=== PATIENT | female | born 1985 | race Two or more races ===

== ENCOUNTER 2023-12-08 11:02 | Emergency (ER) | payer OTHER, SELFPAY ==
--- NOTE | 2023-12-08 11:49 | ED.GENADULT ---
HPI - General Adult General Chief complaint: Dental/Oral Stated complaint: sore throat- r ear pain Time Seen by Provider: 12/08/23 12:05 Source: patient Mode of arrival: ambulatory Limitations: no limitations History of Present Illness ED Provider: Guzman NEGRO HPI narrative: 38yo F presents with sore throat and right ear pain since Wednesday. Hx of recurrent strep pharyngitis. No sick contacts at home. Feels as though she is worsening. Subjective fevers reported. Denies CP, SOB, drooling, voice changes, headache, weakness, N/V, cough, Related Data Previous Rx's ?Medication ?Instructions ?Recorded amoxicillin 875 mg-potassium 1 tab PO BID 7 days #14 tabs 12/08/23 clavulanate 125 mg tablet ciprofloxacin 0.3 %-dexamethasone 4 drp otic (ears) BID 7 days #7.5 12/08/23 0.1 % ear drops,suspension mL (Ciprodex) Allergies Allergy/AdvReac Type Severity Reaction Status Date / Time No Known Allergies Allergy Verified 12/08/23 11:52 Review of Systems Review of Systems: Yes all other systems are reviewed and are negative [facility] Past Medical History Attestation statement: The following information was validated with the patient. Source: old records reviewed and nursing notes reviewed Social History Social History Do you have a plan to hurt others: No Plan Physical Exam ED Vital Signs: Vital Signs - 24 hr 12/08/23 11:50 Temperature 97.5 F Pulse Rate 89 Respiratory Rate 18 Blood Pressure 162/86 H Pulse Oximetry 100 Oxygen Delivery Method Room Air BMI result Body Mass Index 38.4 vss Appearance: Alert.? Oriented X3.? No acute cardiopulmonary distress distress.? Head: Normocephalic, atraumatic, no step-offs or deformities ENT: Pharynx w/ b/l tonsilar hypertrophy and edema no exudate. Uvula midline. Normal external ears b/l, w/ painful manipulation of right ear. TM and EC errythematous and bulging on right. Normal L EC and TM. No mastoid tenderness. Neck: Normal inspection.? Neck supple.? CVS: Pulses normal.?RRR Respiratory: No respiratory distress.?CTA Skin: ? Normal skin color. Neuro: Oriented X 3. Course Course Course Narrative: This is an RME done by [facility] Toth: Additional HPI, ROS, PE not included below will be deferred to primary provider. 38yo F presents with sore throat and right ear pain since Wednesday. Subjective fevers. Denies CP, SOB. Appearance: Alert.? Oriented X3.? No acute cardiopulmonary distress distress.? Head: Normocephalic, atraumatic, no step-offs or deformities ENT: Pharynx w/ b/l tonsilar hypertrophy and edema no exudate. Uvula midline. Normal external ears b/l, w/ painful manipulation of right ear. TM and EC errythematous and bulging on right. Normal L EC and TM. No mastoid tenderness. Neck: Normal inspection.? Neck supple.? CVS: Pulses normal.?RRR Respiratory: No respiratory distress.?CTA Skin: ? Normal skin color. Neuro: Oriented X 3. Reevaluation(s) Reevaluation #1: + strep, patient also has otitis need a an otitis externa. Will give her Augmentin as well as Ciprodex. Educated patient on diagnosis and treatment plan, answered all question, patient verbalizes understanding. At this time patient will be discharged home, advised to return with new or worsening symptoms. Educated on worrisome signs and symptoms and when to return. At this time I feel comfortable discharge home. Time: 13:00 Medical Decision Making Medical Decision Making [facility] Narrative: 38yo F presenting with sore throat and right ear pain since Wednesday. PE: Right EC and TM erythematous and edematous with painful manipulation of the external ear. No mastoid tenderness b/l. Left ear normal. Pharynx erythematous with tonsillar hypertrophy b/l, no exudate. Uvula midline. Hx and PE concerning for strep pharyngitis and AOM, less likely paratonsillar abscess, epiglotitis, mastoiditis, threat to airway, acute respiratory distress, ruptured TM. Plan: serology Differential Diagnosis Differential Diagnoses: The differential diagnosis associated with the presentation includes Hx and PE concerning for strep pharyngitis and AOM, less likely paratonsillar abscess, epiglotitis, mastoiditis, threat to airway, acute respiratory distress, ruptured TM. Admission/Observation Consideration of admission/observation: Escalation of care including admission/observation considered (Unlikely) Lab Data [facility] Lab Attestation statement: I reviewed the patient's lab results. Labs: Lab Results 12/08/23 Range/Units 12:45 S. pyogenes GrpA RITA Positive A (Negative) Critical Care Time Critical Care Time Critical Care Time: No Discharge Plan Discharge Clinical Impression: Otitis media, Otitis externa, Acute streptococcal pharyngitis Patient Disposition: Home, Self-Care Instructions: Pharyngitis (ED), Otitis Externa (ED), How to Use Ear Drops (ED), Ear Infection (ED) Additional Instructions: Take your medications as prescribed. If you were prescribed antibiotics today, it is important that you take your medication to their entirety, do not skip any doses, do not finish them early. Follow-up with your primary care provider this week. Return to the emergency department with new or worsening symptoms. Such as fevers, chills, chest pain, shortness of breath, nausea, vomiting, dizziness, headache, vision changes, lethargy In case of emergency call 911 Prescriptions: New ciprofloxacin-dexamethasone [Ciprodex] 0.3-0.1 % drops,suspension 4 drp otic (ears) BID 7 Days Qty: 7.5 0RF amoxicillin-pot clavulanate 875-125 mg tablet 1 tab PO BID 7 Days Qty: 14 0RF Referrals: Jacinto Swanson NP [Primary Care Provider] - 2 days
[2023-12-08 11:50] VITALS: BP 162/86; PULSE 89; RESP 18; TEMP 36.4; O2SAT 100; BMI 38.4
[2023-12-08 12:56] LABS: IDNOW Serial# 58CA691E; Strep A Nucleic Acid Positive (Negative)
[2023-12-08 13:26] LABS: Influenza A PCR NEGATIVE (Negative); Influenza B PCR NEGATIVE (Negative); Resp Syncy Virus RNA Qual PCR NEGATIVE (Negative); SARS COV2 PCR INHOUSE NEGATIVE (Negative)
[2023-12-08 13:30] VITALS: BP 162/86; PULSE 89; RESP 18; TEMP 36.4; O2SAT 100
== END 2023-12-08 13:33 | disposition home or self-care (01) ==
PROVIDERS: Physician Assistant; Emergency Provider Emergency Medicine Emergency Medical Services
DX: J02.0 Streptococcal pharyngitis (principal); H66.91 Otitis media, unspecified, right ear; H60.91 Unspecified otitis externa, right ear; Z03.818 Encounter for observation for suspected exposure to other biological agents ruled out
CPT/HCPCS: 0241U; 87651; 99282; 99283

== ENCOUNTER 2024-06-18 13:45 | Emergency (ER) | payer OTHER, SELFPAY ==
[2024-06-18 13:47] VITALS: BP 156/69; PULSE 80; RESP 18; TEMP 36.6; O2SAT 99; BMI 39.6
--- NOTE | 2024-06-18 13:48 | ED.EAR ---
HPI - Ear Problem General Chief complaint: Ear Problems Stated complaint: L ear pain Time Seen by Provider: 06/18/24 16:23 Source: patient, RN notes reviewed and old records reviewed Mode of arrival: ambulatory Limitations: no limitations History of Present Illness ED Provider: Milagro CRUZ Narrative: Patient is a 39-year-old female presenting to the emergency department with complaint of left ear pain and drainage. States that yesterday when she woke she felt pressure to both ears. She tried ?popping? her ears and when she did this she heard a pop sensation to her left ear and developed worsening pain to that side. States as she was leaving work last night she noticed drainage from her left ear, but is unsure of the color as she was in the car and it was dark. This morning she had a cotton ball in her ear and noticed some bloody drainage on the cotton ball. Denies nasal congestion, cough, fever. Reports decreased hearing to left ear. MD Complaint: ear pain, ear discharge and decreased hearing Location: left ear Duration: constant Severity: severe Related Data Previous Rx's ?Medication ?Instructions ?Recorded amoxicillin 875 mg-potassium 1 tab PO BID 7 days #14 tabs 12/08/23 clavulanate 125 mg tablet ciprofloxacin 0.3 %-dexamethasone 4 drp otic (ears) BID 7 days #7.5 12/08/23 0.1 % ear drops,suspension mL (Ciprodex) amoxicillin 875 mg tablet 875 mg PO BID #14 tabs 06/18/24 ofloxacin 0.3 % ear drops 10 drp otic (ears) DAILY 7 days 06/18/24 #10 mL Allergies Allergy/AdvReac Type Severity Reaction Status Date / Time No Known Allergies Allergy Verified 06/18/24 13:52 Review of Systems Review of Systems: As per HPI Yes all other systems are reviewed and are negative Constitutional: Constitutional: Reports as per HPI [facility] Social History Social History Advance Directives: No Advance Directives Information Provided: No Physical Exam Vital Signs: Vital Signs: Last Vital Signs Temp 98.6 F 06/18/24 16:14 Pulse 74 06/18/24 16:14 Resp 16 06/18/24 16:14 BP 144/84 H 06/18/24 16:14 Pulse Ox 100 06/18/24 16:14 O2 Del Method Room Air 06/18/24 16:14 BMI result Body Mass Index 39.6 Vital signs have been reviewed and appear to be correct. Blood pressure normal. Heart rate normal. Respiratory rate normal. Temperature normal. Oxygen saturation normal. Const: General: cooperative, healthy appearing and no acute distress Orientation/consciousness: oriented to person, oriented to place, oriented to time and patient oriented x3 Limitations: no limitations HEENT: Head: Yes normocephalic and Yes atraumatic Ears: hearing grossly normal bilaterally, external ears normal, TM normal on the right, EAC's normal, mastoids normal bilaterally, no periauricular adenopathy and TM abnormal perforated with purulent discharge on the left General nose exam: Normal external nose present Face and sinus: Yes face symmetric Mouth: oropharynx normal and moist mucous membranes Throat: Yes uvula midline Eyes: Pupils: Equal, round and reactive pupils present Neck: Neck: Yes normal visual inspection and Yes supple Resp: Effort & Inspection: normal respiratory effort and able to speak in complete sentences Auscultation: clear to auscultation bilaterally Cardio: Rate: regular rate Rhythm: regular rhythm Heart sounds: S1 normal heart sound present and S2 normal heart sound present GI: Palpation (GI): Soft to palpation and nontender Auscultation: normoactive bowel sounds : General: Yes no CVA tenderness Back/Spine/Pelvis: Back: no CVA tenderness Skin: General skin exam: elasticity normal and turgor normal Neuro: General: oriented to person, oriented to place, oriented to time, patient oriented x3, moves all extremities, no focal motor deficits and CN's II-XI intact bilaterally Cranial nerves: Yes Equal, round and reactive pupils present Cognition (Neuro): normal cognition Extrem: General: Yes full ROM, Yes no pedal edema and Yes no calf tenderness Psych: Mental Status: mental status grossly normal Affect: normal affect Thought process: Normal thought process present Course Course Course Narrative: This is a Rapid Medical Examination (RME) performed by Inge Phillip PA-C in triage. Full HPI, ROS, assessment and treatment plan per primary provider in the Main ED. Hx: 39 yo female here for eval of acute L ear pain x24 hours. reports waking up yesterday with both ears feeling congested . tried popping her ears, felt acute pain to L ear. took motrin this morning. placed a cotton ball in ear and on waking this morning, noted blood to cotton ball. also endorses drainage from ear. PE/vitals: pain on manipulation of L pinna. ttp of mastoid region. cannot visualize TM in triage. will need further eval in back, ?irrigation. Medical Decision Making Medical Decision Making [facility] Narrative: Patient is a 39-year-old female presenting to the emergency department with complaint of left ear pain and drainage. On exam patient is awake, A+Ox3, VS WNL, afebrile, normal neurological exam without focal deficits, physical exam findings as above. Given reported symptoms and physical exam findings, initial differential includes but is not limited to otitis media, otitis externa, cerumen impaction, perforated TM. Initially unable to visualize TM of left ear due to discharge in EAC. Discharged removed with curette, noted to be purulent. TM perforated. Results discussed with patient and all questions answered. Will treat with amoxicillin and ofloxacin drops. Will refer to ENT for follow-up. Return precautions discussed. Patient verbalized understanding of and agreement with plan. Differential Diagnosis Differential Diagnoses: The differential diagnosis associated with the presentation includes As per [facility] External Record Review External record reviewed: Inpatient record, Office record and Outpatient record Prescription Management I considered prescription management with: Antibiotic Discharge Plan Discharge Clinical Impression: Perforated left tympanic membrane on examination, Otitis media Patient Disposition: Home, Self-Care Instructions: Ruptured Eardrum (ED), Ear Infection (ED) Additional Instructions: You were evaluated in the emergency department today for ear pain. Your evaluation suggests that your pain is due to an ear infection. On exam, your eardrum appears ruptured. This should heal on it's own, but it is important that you avoid getting water in your ear while bathing, and should avoid swimming/diving. Please take your prescribed antibiotics (by mouth AND drops) as directed for the full course of the medication. We recommend that you take 650 mg of Tylenol or 600 mg of ibuprofen every 6 hours as needed. If necessary, you can alternate these medications every 3 hours. For example, at 9:00 a.m. take Tylenol, then at noon take ibuprofen, then at 3:00 p.m. take Tylenol, etc.. Please follow up with your primary care provider within two days. Return to the emergency department if you experience hearing loss, discharge from your ear, headaches, fevers, recurrent vomiting, or any other concerning symptoms. Prescriptions: New amoxicillin 875 mg tablet 875 mg PO BID Qty: 14 0RF ofloxacin 0.3 % drops 10 drp otic (ears) DAILY 7 Days Qty: 10 0RF Rx Instructions: Left ear No Action ciprofloxacin-dexamethasone [Ciprodex] 0.3-0.1 % drops,suspension 4 drp otic (ears) BID 7 Days Qty: 7.5 0RF amoxicillin-pot clavulanate 875-125 mg tablet 1 tab PO BID 7 Days Qty: 14 0RF Referrals: Luca Hdez MD [Physician] - Print Language: Maltese
[2024-06-18 16:14] VITALS: BP 144/84; PULSE 74; RESP 16; TEMP 37; O2SAT 100
[2024-06-18] MEDS: Amoxicillin/Potassium Clav 875 MG TABLET PO (17:20)
[2024-06-18 17:21] VITALS: BP 144/84; PULSE 74; RESP 16; TEMP 37; O2SAT 100
== END 2024-06-18 17:21 | disposition home or self-care (01) ==
PROVIDERS: Emergency Provider Emergency Medicine; PCP Nurse Practitioner Family
DX: H66.92 Otitis media, unspecified, left ear (principal); H72.92 Unspecified perforation of tympanic membrane, left ear; H92.02 Otalgia, left ear
CPT/HCPCS: 99282; 99283

== ENCOUNTER 2024-06-21 08:55 | Emergency (ER) | payer OTHER, SELFPAY ==
--- NOTE | ~2024-06-21 | CT_ITS ---
EXAMINATION: CT TEMPORAL BONES. CLINICAL INFORMATION: Left mastoid pain. Ringing. Decreased hearing. COMPARISON: No priors. TECHNIQUE: Contiguous axial images through the temporal bones with bone algorithm. Sagittal and coronal reformatted images acquired. This CT examination was performed using dose optimization techniques as appropriate, variously including the following: *Automated exposure control *Adjustment of mA and/or kV according to patient size (this includes techniques or standardized protocols for targeted exams where dose is matched to indication/reason for exam; i.e. extremities or head) *Use of iterative reconstruction technique. DLP: 233 mGy centimeter. FINDINGS: RIGHT TEMPORAL/PETROUS BONE: External auditory canal, cartilage and osseous segments: Patent without focal stenosis. Mucosal thickening. Tympanic membrane: No thickened. Tympanic cavity: Aerated. Ossicles: Intact and aligned. Oval window and round window: Aerated. Tegmen tympanic: Intact. Sinus tympanic: Aerated. Facial fovea: Aerated. Fallopian canal/labyrinthine, geniculate, tympanic and mastoid segments: Intact. Not enlarged. Aditus at antrum and mastoid antrum: Well pneumatized and aerated. Mastoid air cells: Well pneumatized. Air-fluid levels in the dependent portions. No coalescent. Cochlear: Intact. 2 1/2 turns. Vestibule: Intact. Semicircular canals: Intact. Cochlear and vestibular aqueducts: Not enlarged. Internal auditory canal: Carotid canal: Intact. Jugular foramen: Intact. Temporomandibular joint: Intact. LEFT TEMPORAL/PETROUS BONE: External auditory canal, cartilage and osseous segments: Aerated. No focal stenosis. No gross mucosal thickening. Tympanic membrane: Thickened. Tympanic cavity: Soft tissue attenuation involving the epitympanum, mesotympanum and hypotympanum. Ossicles: Irregularities in the ossicles without malalignment. Oval window and round window: Obscured by soft tissue attenuation. Tegmen tympanic: Intact with no focal areas of nonopacification. Sinus tympanic: Obscured by soft tissue attenuation. Facial fovea: [Soft tissue attenuation. Fallopian canal/labyrinthine, geniculate, tympanic and mastoid segments: Intact. Nonenlarged. Aditus at antrum and mastoid antrum: Soft tissue attenuation without gross erosion. Mastoid air cells: Soft tissue attenuation without coalescence. Cochlear: Intact. 2 1/2 turns. Vestibule: Intact. Semicircular canals: Intact. Cochlear and vestibular aqueducts: Not enlarged. Internal auditory canal: Intact. No enlarged. Carotid canal: Intact. Jugular foramen: Intact. Temporomandibular joint: Intact. Ancillary findings: Old traumatic deformities in the nasal bones. Retention cysts versus polyps, left maxillary sinus. Mucosal thickening, maxillary sinuses. CT/CT mastoid IMPRESSION: Concerning cholesteatoma, left petrous bone. Normal right temporal bone. Electronically signed by: Shane Camargo MD 06/21/2024 11:13 AM EDT
[2024-06-21 08:58] VITALS: BP 147/91; PULSE 79; RESP 18; TEMP 36.6; O2SAT 99; BMI 39.5
--- NOTE | 2024-06-21 10:17 | ED.EAR ---
HPI - Ear Problem General Chief complaint: Ear Problems Stated complaint: difficulty hearing and talking Time Seen by Provider: 06/21/24 09:27 Source: patient Mode of arrival: ambulatory Limitations: no limitations History of Present Illness ED Provider: BRIT PHILLIP PA-C HPI Narrative: 39 year old female with no significant pmhx presents to the ED today with left ear pain, decreased hearing, and ringing in her left ear x5 days. She states she was seen at our facility 3 days ago for similar. She was diagnosed with a ruptured left TM and discharged home with oral and otic antibiotics. She has been compliant with both of these medication. She has also been taking motrin without much relief. Reports continued pain to the left ear. Now having ringing in the ear with muffled hearing. The ear has been draining a purulent fluid. She has been placing cotton balls in the ear. No new injury/ trauma. No hx DM. No known sick contacts. No recent upper respiratory sx. States she has not been able to go to work due to her symptoms. She was provided a referral to ENT however did not contact them for follow up. Denies fever, chills, dizziness, headache. Related Data Previous Rx's ?Medication ?Instructions ?Recorded amoxicillin 875 mg-potassium 1 tab PO BID 7 days #14 tabs 12/08/23 clavulanate 125 mg tablet ciprofloxacin 0.3 %-dexamethasone 4 drp otic (ears) BID 7 days #7.5 12/08/23 0.1 % ear drops,suspension mL (Ciprodex) amoxicillin 875 mg tablet 875 mg PO BID #14 tabs 06/18/24 ofloxacin 0.3 % ear drops 10 drp otic (ears) DAILY 7 days 06/18/24 #10 mL amoxicillin 875 mg tablet 875 mg PO BID 3 days #6 tabs 06/21/24 Allergies Allergy/AdvReac Type Severity Reaction Status Date / Time No Known Allergies Allergy Verified 06/21/24 09:00 Review of Systems Review of Systems: Constitutional: No fever, chills, fatigue, night sweats, weight changes ENT/Mouth: No nasal congestion, sinus pain, rhinorrhea, sore throat, +left ear pain/ drainage, +dec hearing Eyes: No eye pain, swelling, redness, vision changes, discharge Cardio: No chest pain, palpitations, [place], orthopnea, peripheral edema Pulm: No SOB, cough, sputum, wheezing, dyspnea, hemoptysis GI: No nausea, vomiting, hematemesis, abdominal pain, diarrhea, constipation, hematochezia, melena : No irregular bleeding, dysuria, frequency, urgency, hesitancy, hematuria, flank pain, urinary flow changes, urinary incontinence or retention MSK: No back pain, neck pain, joint pain, myalgias Skin: No lesions, rashes Neuro: No weakness, numbness, paresthesias, LOC, dizziness, headache Psych: No anxiety/panic, depression, SI/HI, AH/VH All other systems reviewed and are negative. [facility] Past Medical History Attestation statement: The following information was validated with the patient. Source: old records reviewed and nursing notes reviewed Social History Social History Smoked in Last 30 Days: No Use of substances other than those prescribed or required for medical reasons: Yes Substance Use Type: Marijuana Substance Use Frequency: Daily Advance Directives: No Advance Directives Information Provided: Yes Do you have a plan to hurt others: No Plan Patient : No Physical Exam Vital Signs: Vital Signs: Last Vital Signs Temp 98 F 06/21/24 08:58 Pulse 79 06/21/24 08:58 Resp 18 06/21/24 08:58 BP 147/91 H 06/21/24 08:58 Pulse Ox 99 06/21/24 08:58 O2 Del Method Room Air 06/21/24 08:58 BMI result Body Mass Index 39.5 Hypertensive, vitals otherwise WNL General: Well appearing, in no acute distress. Skin: Warm, dry, intact. No rashes or lesions. Head: Normocephalic, atraumatic. EENT: conjunctiva clear. PERRLA. EOM intact. Moist mucous membranes.? Posterior oropharynx erythematous with bilateral tonsillar hypertrophy. No tonsillar exudates. No peritonsillar masses. No kissing tonsils. Uvula midline. Controlling secretions and speaking in complete sentences. No muffled voice. Pain on manipulation of left pinna. No protrusion of the auricle. Minimal mastoid tenderness without fluctuance, warmth. Left EAC without erythema, edema or discharge. TM intact and erythematous. no effusion, or bulging. no TM rupture. Right EAC/TM wnl. Neck: Supple without LAD. no anterior neck swelling. Cardiac: Chest wall symmetric. RRR. Lungs: Normal respiratory effort without accessory muscle use. CTA bilaterally. ? Abdomen: Soft, non-tender, non-distended. No rebound tenderness or guarding. Positive BS x4. Neuro: AOx3. Normal speech.Ambulating with steady gait. Course Course Course Narrative: CT mastoid shows normal EAC. Tympanic membrane appears thickened with soft tissue attenuation involving the epitympanum, mesotympanum and hypotympanum. Irregularities in the ossicles without malalignment. Mastoid air cells normal. Incidental findings of old traumatic deformities within the nasal bones, retention cyst versus polyps within the left maxillary sinus, mucosal thickening of the maxillary sinuses. Overall, findings concerning for cholesteatoma left petrous bone. Normal right temporal bone. > on re-evaluation, patient does not have any tenderness to maxillary sinuses. Denies any nasal congestion. I am not concern for acute sinusitis. > she did test positive for strep throat which is consistent with my exam findings. > patient was provided with a prescription for amoxicillin and ofloxacin approximately 3 days ago. Advised to continue these medications at home. Will send 3 more days of amoxicillin for treatment of strep throat. Patient will need to follow-up with ENT for cholesteatoma. Referral has been provided. Advised to call to make an appointment. Patient has remained stable throughout ED visit today. Discussed worrisome signs and symptoms and when to return to the ED. All questions answered at this time. Patient is agreeable with disposition and stable for discharge. Medications Administered Discontinued Medications Generic Name Dose Route Start Last Admin Trade Name Freq PRN Reason Stop Dose Admin Ketorolac Tromethamine 30 mg 06/21/24 10:24 06/21/24 10:48 Ketorolac Tromethamine 30 Mg/Ml Vial IM 06/21/24 10:25 30 mg ONCE ONE Administration Medical Decision Making Medical Decision Making MDM Narrative: 39 year old female with no significant pmhx presents to the ED today with left ear pain, decreased hearing, and ringing in her left ear x5 days. hypertensive, vitals are otherwise wnl. she is nontoxic appearing and in NAD. on exam, moist mucous membranes.? Posterior oropharynx erythematous with bilateral tonsillar hypertrophy. No tonsillar exudates. No peritonsillar masses. No kissing tonsils. Uvula midline. Controlling secretions and speaking in complete sentences. No muffled voice. Pain on manipulation of left pinna. No protrusion of the auricle. Minimal mastoid tenderness without fluctuance, warmth. Left EAC without erythema, edema or discharge. TM intact and erythematous. no effusion, or bulging. Right EAC/TM wnl. Differential diagnosis includes acute OM, TM rupture, otitis externa, mastoiditis, malignant otitis externa, cholesteatoma, viral syndrome, strep throat Unlikely labyrinthitis, BPPV, acute intracranial pathology including bleed or mass. Plan for viral/strep swabs, ct mastoid, pain control, and re-evaluation. Differential Diagnosis Differential Diagnoses: The differential diagnosis associated with the presentation includes as above. Admission/Observation not indicated. Lab Data MDM Lab Attestation statement: I reviewed the patient's lab results. as above. Labs: Lab Results 06/21/24 Range/Units 10:45 Influenza Type A (PCR) NEGATIVE (Negative) Influenza Type B (PCR) NEGATIVE (Negative) RSV RNA Qual (PCR) NEGATIVE (Negative) SARS-CoV-2 RNA (RT-PCR) NEGATIVE (Negative) S. pyogenes GrpA RITA Positive A (Negative) Independent Interpretation I performed an independent interpretation of an: CT Scan Interpretation: ct mastoid without TM perforation Radiology Impression Discussion of test interpretation with radiology: I have reviewed the radiologist's reading. Radiologist Impression: Procedure(s): CT mastoid Accession Number(s): [id number] cc: Jacinto Swanson; Brit Phillip PA~ Report Number: [id number]: Total DLP = 233.00 mGy-cm EXAMINATION: CT TEMPORAL BONES. CLINICAL INFORMATION: Left mastoid pain. Ringing. Decreased hearing. COMPARISON: No priors. TECHNIQUE: Contiguous axial images through the temporal bones with bone algorithm. Sagittal and coronal reformatted images acquired. This CT examination was performed using dose optimization techniques as appropriate, variously including the following: *Automated exposure control *Adjustment of mA and/or kV according to patient size (this includes techniques or standardized protocols for targeted exams where dose is matched to indication/reason for exam; i.e. extremities or head) *Use of iterative reconstruction technique. DLP: 233 mGy centimeter. FINDINGS: RIGHT TEMPORAL/PETROUS BONE: External auditory canal, cartilage and osseous segments: Patent without focal stenosis. Mucosal thickening. Tympanic membrane: No thickened. Tympanic cavity: Aerated. Ossicles: Intact and aligned. Oval window and round window: Aerated. Tegmen tympanic: Intact. Sinus tympanic: Aerated. Facial fovea: Aerated. Fallopian canal/labyrinthine, geniculate, tympanic and mastoid segments: Intact. Not enlarged. Aditus at antrum and mastoid antrum: Well pneumatized and aerated. Mastoid air cells: Well pneumatized. Air-fluid levels in the dependent portions. No coalescent. Cochlear: Intact. 2 1/2 turns. Vestibule: Intact. Semicircular canals: Intact. Cochlear and vestibular aqueducts: Not enlarged. Internal auditory canal: Carotid canal: Intact. Jugular foramen: Intact. Temporomandibular joint: Intact. LEFT TEMPORAL/PETROUS BONE: External auditory canal, cartilage and osseous segments: Aerated. No focal stenosis. No gross mucosal thickening. Tympanic membrane: Thickened. Tympanic cavity: Soft tissue attenuation involving the epitympanum, mesotympanum and hypotympanum. Ossicles: Irregularities in the ossicles without malalignment. Oval window and round window: Obscured by soft tissue attenuation. Tegmen tympanic: Intact with no focal areas of nonopacification. Sinus tympanic: Obscured by soft tissue attenuation. Facial fovea: [Soft tissue attenuation. Fallopian canal/labyrinthine, geniculate, tympanic and mastoid segments: Intact. Nonenlarged. Aditus at antrum and mastoid antrum: Soft tissue attenuation without gross erosion. Mastoid air cells: Soft tissue attenuation without coalescence. Cochlear: Intact. 2 1/2 turns. Vestibule: Intact. Semicircular canals: Intact. Cochlear and vestibular aqueducts: Not enlarged. Internal auditory canal: Intact. No enlarged. Carotid canal: Intact. Jugular foramen: Intact. Temporomandibular joint: Intact. Ancillary findings: Old traumatic deformities in the nasal bones. Retention cysts versus polyps, left maxillary sinus. Mucosal thickening, maxillary sinuses. CT/CT mastoid IMPRESSION: Concerning cholesteatoma, left petrous bone. Normal right temporal bone. Electronically signed by: Shane Camargo MD 06/21/2024 11:13 AM EDT External Record Review External record reviewed: Inpatient record Prescription Management I considered prescription management with: Antibiotic Social Determinants Patient?s care significantly limited by Social Determinants of Health including: Other Social Determinant of Health Critical Care Time Critical Care Time Critical Care Time: No Discharge Plan Discharge Clinical Impression: Cholesteatoma, Strep pharyngitis Patient Disposition: Home, Self-Care Instructions: Strep Throat (ED) Additional Instructions: You were seen in the ED today for left ear pain. The CT scan of your left ear shows a skin growth behind your ear drum called a cholesteatoma. You need to follow up with ENT. Referral has been provided. Call them to establish are, they will not call you. Continue home antibiotics. You also tested positive for strep throat. You are currently on amoxicillin which can treat this. You were only given a 7 day course. I am sending another 3 days of medication to your pharmacy. Take a total of 10 days of amoxicillin. You may also purchase [id number] chloraseptic spray to numb your throat. Take Tylenol and ibuprofen as needed for body aches or fevers. Make sure to change your toothbrush as this contains bacteria. Strep throat is contagious. If anyone else in your household is exhibiting symptoms, please advise them to come to the ED, urgent care, or to see their primary care provider. Follow up with your primary care provider this week. Return to the Emergency Department if you experience worsening or uncontrolled pain, tongue swelling, difficulty swallowing, change in your voice, difficulty breathing, fevers 100.4?F or greater, recurrent vomiting, development of a rash, or any other concerning symptoms. In the case of emergency, call 911.? [facility] [address], [place] [address] Prescriptions: New amoxicillin 875 mg tablet 875 mg PO BID 3 Days Qty: 6 0RF No Action ciprofloxacin-dexamethasone [Ciprodex] 0.3-0.1 % drops,suspension 4 drp otic (ears) BID 7 Days Qty: 7.5 0RF amoxicillin-pot clavulanate 875-125 mg tablet 1 tab PO BID 7 Days Qty: 14 0RF amoxicillin 875 mg tablet 875 mg PO BID Qty: 14 0RF ofloxacin 0.3 % drops 10 drp otic (ears) DAILY 7 Days Qty: 10 0RF Rx Instructions: Left ear Referrals: Jacinto Swanson NP [Primary Care Provider] - Stand Alone Forms: Work/School Release Print Language: Romansh
[2024-06-21] MEDS: Ketorolac Tromethamine 30 MG/ML VIAL IM (10:48)
[2024-06-21 10:54] LABS: IDNOW Serial# 58CA691E; Strep A Nucleic Acid Positive (Negative)
[2024-06-21 11:29] LABS: Influenza A PCR NEGATIVE (Negative); Influenza B PCR NEGATIVE (Negative); Resp Syncy Virus RNA Qual PCR NEGATIVE (Negative); SARS COV2 PCR INHOUSE NEGATIVE (Negative)
[2024-06-21 12:26] VITALS: BP 147/91; PULSE 79; RESP 18; TEMP 36.6; O2SAT 99
[2024-06-21 12:36] VITALS: BP 175/84; PULSE 74; RESP 13; TEMP 36.7; O2SAT 100
== END 2024-06-21 12:42 | disposition home or self-care (01) ==
PROVIDERS: Physician Assistant Medical; Emergency Provider Emergency Medicine; PCP Nurse Practitioner Family
DX: J02.0 Streptococcal pharyngitis (principal); H71.92 Unspecified cholesteatoma, left ear; H92.02 Otalgia, left ear; F12.90 Cannabis use, unspecified, uncomplicated; Z03.818 Encounter for observation for suspected exposure to other biological agents ruled out
CPT/HCPCS: 0241U; 70481; 87651; 96372; 99284; J1885

== ENCOUNTER → 2024-06-21 10:22 | Outpatient (BNV) | payer OTHER, SELFPAY | PROVIDERS: Emergency Provider Emergency Medicine; PCP Nurse Practitioner Family; Visit Provider Radiology Diagnostic Radiology | DX: H70.92 Unspecified mastoiditis, left ear (principal) | CPT/HCPCS: 70481 ==